=== PATIENT | male | born 1945 | race Caucasian/White ===

== ENCOUNTER 2016-10-10 05:26 | Emergency (ER) | payer OTHER ==
--- NOTE | 2016-10-10 05:46 | PDOC ---
History of Present Illness - General History Source: Patient Exam Limitations: No Limitations - History of Present Illness Initial Comments: 10/10/16 06:13 The patient is a 71 year old male with significant past medical history of hypertension, hyperlipidemia, and gerd who presents to the ED for 1 day of worsening headache. Patient reports in June 2016, he had a aortic valve replacement done and since then he has been keeping daily logs of his blood pressure, which is relatively stable until yesterday afternoon. States he developed headache with associated dizziness yesterday afternoon. Patient reports he then noted his blood pressure to be elevated. Denies diaphoresis, palpitations, SOB, chest pain, jaw pain, shoulder pain, arm pain, nausea, or vomiting. He also has complaints of increased urination. Admits to being compliant with his blood pressure medications and states taking his blood pressure medications early this morning around 4am. The patient denies fever, chills, cough, abdominal pain, and diarrhea. The patient denies dysuria, hematuria, urgency, and frequency. Allergies: NKDA Social History: No alcohol, tobacco, or drug use reported. Past Surgical History: hernia repair, aortic valve replacement (06/2016) PCP: Dr. Bassam Oneil <Adriana Damon - Last Filed: 10/10/16 06:39> - General History Source: Patient <JoelYuriy brumfield - Last Filed: 10/10/16 19:42> - General Chief Complaint: Headache Stated Complaint: HEADACHE,BLOOD PRESSURE PROBLEM Time Seen by Provider: 10/10/16 05:46 Past History <Adriana Damon - Last Filed: 10/10/16 06:39> - Past Medical History GI Disorders: Yes HTN: Yes - Surgical History Abdominal Surgery: Yes (HERNIA) - Psycho/Social/Smoking Cessation Hx Suicidal Ideation: No Smoking History: Never smoked Hx Alcohol Use: No Drug/Substance Use Hx: No Substance Use Type: None <Yuriy Garcia - Last Filed: 10/10/16 19:42> - Past Medical History Allergies/Adverse Reactions: Allergies Allergy/AdvReac Type Severity Reaction Status Date / Time No Known Allergies Allergy Verified 10/10/16 05:45 Home Medications: Ambulatory Orders Aspirin Coated [Ecotrin -] 81 mg PO DAILY 02/14/16 Cholecalciferol (Vitamin D3) [Vitamin D] 2,000 unit PO DAILY 02/14/16 Ezetimibe/Simvastatin [Vytorin 10-20 mg Tablet] 1 tab PO DAILY 02/14/16 Losartan Potassium 25 mg PO DAILY 02/14/16 Mag Carb/Al Hydrox/Alginic AC [Gaviscon Liquid] 0 ml PO DAILY 02/14/16 Review of Systems - Review of Systems Able to Perform ROS?: Yes Comments:: 10/10/16 06:13 CONSTITUTIONAL: Absent: fever, chills, diaphoresis, generalized weakness, malaise, loss of appetite HEENT: Absent: rhinorrhea, nasal congestion, throat pain, throat swelling, difficulty swallowing, ear pain, eye pain, visual Changes CARDIOVASCULAR: +elevated blood pressure Absent: chest pain, syncope, palpitations, lightheadedness, peripheral edema RESPIRATORY: Absent: cough, shortness of breath, dyspnea with exertion, orthopnea, wheezing GASTROINTESTINAL: Absent: abdominal pain, abdominal distension, nausea, vomiting, diarrhea, constipation GENITOURINARY: +increased urination Absent: dysuria, frequency, urgency, hesitancy, hematuria, flank pain, genital pain MUSCULOSKELETAL: Absent: myalgia, arthralgia, joint swelling SKIN: Absent: rash, itching, pallor NEUROLOGIC: +headache, dizziness Absent: focal weakness or paresthesias, dizziness, unsteady gait, seizure, mental status changes, bladder or bowel incontinence <Adriana Damon - Last Filed: 10/10/16 06:39> *Physical Exam - Vital Signs Last Vital Signs Temp Pulse Resp BP Pulse Ox 98.2 F 65 16 167/93 100 10/10/16 05:45 10/10/16 05:45 10/10/16 05:45 10/10/16 05:45 10/10/16 05:45 - Physical Exam Comments: 10/10/16 06:13 GENERAL: Well developed, well nourished. Awake and alert. No acute distress. HEENT: Normocephalic, atraumatic. PERRLA, EOMI. No conjunctival pallor. Sclera are non- icteric. Moist mucous membranes. Oropharynx is clear. NECK: Supple. Full ROM. No JVD. Carotid pulses 2+ and symmetric, without bruits. No thyromegaly. No lymphadenopathy. CARDIOVASCULAR: Regular rate and rhythm. No murmurs, rubs, or gallops. PULMONARY: No evidence of respiratory distress. Lungs clear to auscultation bilaterally. No wheezing, rales or rhonchi. ABDOMINAL: Soft. Non-tender. Non-distended. No rebound or guarding. Normoactive bowel sounds. MUSCULOSKELETAL Normal range of motion at all joints. No bony deformities or tenderness. No CVA tenderness. EXTREMITIES: No cyanosis. No clubbing. No edema. No calf tenderness. SKIN: Warm and dry. Normal capillary refill. No rashes. No jaundice. NEUROLOGICAL: Alert, awake, appropriate. Cranial nerves 2-12 intact. Moving all extremities. No gross focal neurological deficits. <Adriana Damon - Last Filed: 10/10/16 06:39> ED Treatment Course - RADIOLOGY Radiograph Interpretation: 10/10/16 06:39 EXAM: HEAD CT WITHOUT CONTRAST Reviewed by Imaging conche operator: FINDINGS:Brain parenchyma demonstrates no mass, or bleed. There is a focal lucency in the right frontal periventricular white matter suggesting a old or subacute lacunar infarction. There is focal lucency in the inferior right cerebellum suggesting an old or subacute infarction. There is no intracranial bleed. Ventricles are normal in caliber and distribution. Scott-white matter dictation appears normal. Extra-axial CSF spaces and sulci appear normal. Intracranial vascular structures are normal in attenuation. There is no calvarial fracture. Rounded density in the left maxillary sinus suggesting mucous retention cyst IMPRESSION: No intracranial bleed Focal lucency in the right cerebellum suggesting an old, or subacute infarction. Correlation with history and comparison to prior studies, if available is recommended. <Adriana Damon - Last Filed: 10/10/16 06:39> - LABORATORY CBC & Chemistry Diagram: 10/10/16 07:40 10/10/16 07:40 <Yuriy Garcia - Last Filed: 10/10/16 19:42> Medical Decision Making - Medical Decision Making 10/10/16 19:42 Dr. Garcia: The scribe's documentation has been prepared under my direction and personally reviewed by me in its entirery. I confirm that the note above accurately reflects all work, treatment, procedures, and medical decision making performed by me. <Yuriy Garcia - Last Filed: 10/10/16 19:42> *DC/Admit/Observation/Transfer - Attestations Scribe Attestion: 10/10/16 06:13 Documentation prepared by Adriana Damon, acting as medical social consultant for Yuriy Garcia MD <Adriana Damon - Last Filed: 10/10/16 06:39> - Discharge Dispostion Admit: No <Yuriy Garcia - Last Filed: 10/10/16 19:42> Diagnosis at time of Disposition: Headache Qualifiers: Headache type: tension-type Headache chronicity pattern: acute headache Intractability: not intractable Qualified Code(s): G44.209 - Tension-type headache, unspecified, not intractable - Discharge Dispostion Disposition: HOME Condition at time of disposition: Improved - Referrals Referrals: Bassam Oneil MD [Primary Care Provider] - - Patient Instructions Printed Discharge Instructions: DI for Hormonal and Tension Headaches Additional Instructions: Return to the emergency department immediately with ANY new, persistent or worsening symptoms including worsening headache, vision changes, numbness/ tingling/weakness, persistent nausea and vomiting or any other concerns. Make sure you are getting adaqute sleep and hydration. You MUST call and follow up with your doctor tomorrow for further evaluation of your symptoms. Your emergency department visit is not complete without a followup with your doctor for reevaluation. Results were discussed with you. Please make sure your doctor reviews the results of your emergency evaluation. If you had any xrays during your visit, it was read preliminarily by myself, a Radiologist will review it and if there are any additional findings we will call you. Print Language: SOMALI
[2016-10-10 06:03] VITALS: TEMP 98.2; BMI 29.4
[2016-10-10] MEDS ORDERED: ACETAMINOPHEN 325 MG TABLET (FP) ONE (07:05)
[2016-10-10] MEDS: ACETAMINOPHEN 325 MG TABLET (FP) PO ONE (07:07)
--- NOTE | 2016-10-10 07:13 | PDOC ---
*Physical Exam - Vital Signs Last Vital Signs Temp Pulse Resp BP Pulse Ox 98.2 F 65 16 167/93 100 10/10/16 05:45 10/10/16 05:45 10/10/16 05:45 10/10/16 05:45 10/10/16 05:45 ED Treatment Course - LABORATORY CBC & Chemistry Diagram: 10/10/16 07:40 10/10/16 07:40 - Medications Given in the ED: ED Medications Discontinued Medications Generic Name Dose Route Start Last Admin Trade Name Christy PRN Reason Stop Dose Admin Acetaminophen 975 mg 10/10/16 06:50 10/10/16 07:07 Tylenol - PO 10/10/16 06:51 975 mg ONCE ONE Administration Medical Decision Making - Medical Decision Making 10/10/16 07:12 pt signed out to me from Dr Albarran 71y M hx of htn, hl, gerd presents with headache, sp AVR, pt developed a headache and dizziness yesterday aftenroon and saw that his bp was elevated. Pt notes taht he has not been sleeping very well the past 2 nights, an dhas been following his bp. pt coray feels significantly improved. awaiting lab work if it is negative will dc the p tto fu with his pmd 10/10/16 09:38 The pts labs were reviewed and are unremarkable the pts labs are negative will dc the pt to fu with his PMD return precautions were discussed I discussed the physical exam findings, ancillary test results and final diagnoses with the patient. I answered all of the patient's questions. The patient was satisfied with the care received and felt comfortable with the discharge plan and treatment plan. The patient will call their primary care physician within 24 hours to arrange follow-up and will return to the Emergency Department with any new, persistent or worsening symptoms. *DC/Admit/Observation/Transfer Diagnosis at time of Disposition: Headache Qualifiers: Headache type: tension-type Headache chronicity pattern: acute headache Intractability: not intractable Qualified Code(s): G44.209 - Tension-type headache, unspecified, not intractable - Discharge Dispostion Disposition: HOME Condition at time of disposition: Improved Admit: No - Referrals Referrals: Bassam Oneil MD [Primary Care Provider] - - Patient Instructions Printed Discharge Instructions: DI for Hormonal and Tension Headaches Additional Instructions: Return to the emergency department immediately with ANY new, persistent or worsening symptoms including worsening headache, vision changes, numbness/ tingling/weakness, persistent nausea and vomiting or any other concerns. Make sure you are getting adaqute sleep and hydration. You MUST call and follow up with your doctor tomorrow for further evaluation of your symptoms. Your emergency department visit is not complete without a followup with your doctor for reevaluation. Results were discussed with you. Please make sure your doctor reviews the results of your emergency evaluation. If you had any xrays during your visit, it was read preliminarily by myself, a Radiologist will review it and if there are any additional findings we will call you. Print Language: SLOVENIAN - Post Discharge Activity
[2016-10-10 08:04] LABS: BASOPHIL 0.6 % (0-2.0); EOSINOPHIL 0.7 % (0-4.5); MEAN CELL VOLUME 85.4 fl (80-96); MEAN PLT VOLUME 7.8 fl (7.5-11.1); NEUTROPHILS 79.7 % (42.8-82.8); PLATELET COUNT 273 K/MM3 (134-434); RDW 14.9 % (11.9-15.9); WHITE BLOOD COUNT 8.3 K/mm3 (4.0-10.0)
[2016-10-10 08:28] LABS: ALK PHOS 109 U/L (45-117); ANION GAP 7 (8-16); BILIRUBIN,TOTAL 0.6 mg/dL (0.2-1.0); CO2 28 mmol/L (21-32); COCKROFT - GAULT 111.38; CREATININE 0.8 mg/dL (0.7-1.3); GLUCOSE,RANDOM 115 mg/dL (74-106); SGOT/AST 18 U/L (15-37); SGPT/ALT 38 U/L (12-78); TOT PROT 7.7 g/dl (6.4-8.2)
[2016-10-10 09:48] VITALS: BP 136/91; PULSE 62
== END 2016-10-10 09:50 | disposition home or self-care (01) ==
LOC: JER 05:26
DX: G44.209 Tension-type headache, unspecified, not intractable (principal); I10 Essential (primary) hypertension; Z95.2 Presence of prosthetic heart valve; E78.00 Pure hypercholesterolemia, unspecified; K21.9 Gastro-esophageal reflux disease without esophagitis
CPT/HCPCS: 36415; 70450-TC; 80053; 85025; 99281-25

== ENCOUNTER 2017-10-21 16:46 | Emergency (ER) | payer OTHER ==
--- NOTE | 2017-10-21 17:07 | PDOC ---
Rapid Medical Evaluation Time Seen by Provider: 10/21/17 17:03 Medical Evaluation: Allergies Allergy/AdvReac Type Severity Reaction Status Date / Time No Known Allergies Allergy Verified 10/21/17 17:03 10/21/17 17:04 I have performed a brief in-person evaluation of this patient. The patient presents with a chief complaint of blood per rectum. Reports 2 episodes of mucus per rectum and one episode of bright red blood when he cleans Pertinent physical exam findings are NAD even and unlabored breathing, lungs clear bilaterally heart s1s2 abdomen non tender +bowel sounds I have ordered the following labs this patient will proceed to the ED for further evaluation.
[2017-10-21 17:14] VITALS: TEMP 98.2; BMI 32.5
[2017-10-21 18:16] LABS: INR 0.95 (0.82-1.09); PROTHROMBIN TIME (PATIENT) 10.7 SEC (9.7-13.0)
[2017-10-21 18:19] LABS: ACTIVATED PTT 29.2 SECONDS (26.9-34.4)
[2017-10-21 18:19] LABS: BASO % 0.4 % (0-2.0); HEMATOCRIT 38.6 % (35.4-49); HEMOGLOBIN 13.4 GM/dL (11.7-16.9); LYMPH % 17.4 % (8-40); MCH 30.5 pg (25.7-33.7); MCHC 34.8 g/dl (32.0-35.9); MEAN CELL VOLUME 87.8 fl (80-96); MEAN PLT VOLUME 8.2 fl (7.5-11.1); MONO % 10.1 % (3.8-10.2); NEUT % 71.1 % (42.8-82.8); PLATELET COUNT 255 K/MM3 (134-434); RDW 15.2 % (11.9-15.9); WHITE BLOOD COUNT 6.5 K/mm3 (4.0-10.0)
--- NOTE | 2017-10-21 18:29 | CON.GI ---
Consult Consult Specialty:: Gastroenterology Referred by:: ER Reason for Consultation:: Rectal bleeding - History of Present Illness Chief Complaint: Rectal bleeding History of Present Illness: 72M had a solid formed BM this AM. He subsequently had tenesmus leading to 5 attempts to defecate which yielded only mucus. After the 4th BM attempt he expressed freash blood on the poilet papaer after wiping. At no point did he see blood in the toilet bowl and had no blood on wiping after the 5th defecation. He did take antibiotics about 3 weeks ago for dental work, but denies any colicky abdominal pain or fever. He recently had his Amiodarone stopped by Dr Oneil after he developed hyperthyroidism. He is awaiting and endocrine evaluation with Dr Michelle. He is s/ p bioprosthetic ( porcine) AVR at [facility] in 07/29/[address] Nice. He takes a baby aspirin daily. Jair is well known to me. His last underwent colonoscopy on 02/07/15 when a 1.5cm adenoma was removed from his descending colon. Moderate diverticulosis was seen universally. His last EGD in 03/15 revealed GERD and atrophic gastritis. - History Source History Provided By: Patient Limitations to Obtaining History: No Limitations - Past Medical History Cardio/Vascular: Yes: Aneurysm (Thoracic aortic aneurysm), Aortic Insufficiency (requiring porcine AVR 07/29/16 @ [facility]), HTN, Hyperlipdemia, Mitral Insufficiency Gastrointestinal: Yes: Diverticulosis, Gastritis (H. 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 attendant Place of : Other ([place]) Came to [place] (year): age 17 History of Recent Travel: No Home Medications - Allergies Allergies/Adverse Reactions: Allergies Allergy/AdvReac Type Severity Reaction Status Date / Time No Known Allergies Allergy Verified 10/21/17 17:03 - Home Medications Home Medications: Ambulatory Orders Aspirin Coated [Ecotrin -] 81 mg PO DAILY 02/14/16 Cholecalciferol (Vitamin D3) [Vitamin D] 2,000 unit PO DAILY 02/14/16 Ezetimibe/Simvastatin [Vytorin 10-20 mg Tablet] 1 tab PO DAILY 02/14/16 Losartan Potassium 25 mg PO DAILY 02/14/16 Mag Carb/Aluminum Hydrox/Algin [Gaviscon Liquid] 0 ml PO DAILY 02/14/16 Family Disease History - Family Disease History Family Disease History: Respiratory: Father (COPD), Other: Mother (HTN), Brother (Healthy) Review of Systems - Review of Systems Constitutional: reports: No Symptoms Eyes: reports: No Symptoms HENT: reports: No Symptoms Neck: reports: No Symptoms Cardiovascular: reports: Other (Lightheadedness last 2 weeks) Respiratory: reports: No Symptoms Gastrointestinal: reports: Rectal Bleeding, Other (hyperdefecation) Genitourinary: reports: No Symptoms Musculoskeletal: reports: Joint Pain Neurological: reports: No Symptoms Endocrine: reports: No Symptoms Hematology/Lymphatic: reports: No Symptoms Psychiatric: reports: No Symptoms Physical Exam-GI Vital Signs: Vital Signs Temperature 98.2 F 10/21/17 17:05 Pulse Rate 74 10/21/17 17:05 Respiratory Rate 17 10/21/17 17:05 Blood Pressure 136/83 10/21/17 17:05 O2 Sat by Pulse Oximetry (%) 96 10/21/17 17:05 CBC,CMP WBC 6.5 K/mm3 (4.0-10.0) 10/21/17 17:52 RBC 4.40 M/mm3 (4.00-5.60) 10/21/17 17:52 Hgb 13.4 GM/dL (11.7-16.9) 10/21/17 17:52 Hct 38.6 % (35.4-49) 10/21/17 17:52 MCV 87.8 fl (80-96) 10/21/17 17:52 MCH 30.5 pg (25.7-33.7) 10/21/17 17:52 MCHC 34.8 g/dl (32.0-35.9) 10/21/17 17:52 RDW 15.2 % (11.9-15.9) 10/21/17 17:52 Plt Count 255 K/MM3 (134-434) 10/21/17 17:52 MPV 8.2 fl (7.5-11.1) 10/21/17 17:52 Neutrophils % 71.1 % (42.8-82.8) 10/21/17 17:52 Lymphocytes % 17.4 % (8-40) D 10/21/17 17:52 Monocytes % 10.1 % (3.8-10.2) 10/21/17 17:52 Eosinophils % 1.0 % (0-4.5) 10/21/17 17:52 Basophils % 0.4 % (0-2.0) 10/21/17 17:52 Constitutional: Yes: Anxious Eyes: Yes: Conjunctiva Clear HENT: Yes: Normocephalic Neck: Yes: Trachea Midline Cardiovascular: Yes: Regular Rate and Rhythm, Tachycardia, S1 (click heard) Respiratory: Yes: CTA Bilaterally Gastrointestinal Inspection: Yes: WNL ...Auscultate: Yes: Normoactive Bowel Sounds ...Palpate: Yes: Soft, Other (nontender) ...Percussion: Yes: Tympanitic ...Rectal Exam: Yes: Guaiac Positive, Hemorrhoids/External (palpable, friabe external hemorrhoids), Sphincter Tone Normal Genitourinary: Yes: Other (2+ prostate) Musculoskeletal: Yes: WNL Extremities: Yes: WNL Edema: No Peripheral Pulses WNL: Yes Neurological: Yes: Alert, Oriented Problem List - Problems (1) Diarrhea Assessment/Plan: I believe that Jair may have hyperdefecation related to his Amiodarone but given his antibiotic exposure and tenesmus have asked that stool be sent for C diff toxin and C/S. I also advised his nurse Tsering to get an EKG to exclude ENIO and SVT before considering discharge. Code(s): R19.7 - DIARRHEA, UNSPECIFIED (2) Hematochezia Assessment/Plan: Give his pattern of bleeding, stable Hb and anal findings, Jair's bleeding appears to be hemorrhoidal and aggravated by frequent defecation and wiping. I have no GI objections to discharge and advised Jair to use TUCKs and to take Sitz baths with epsom salt. He can followup in our office. 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 I advised him to return to our office to arrange colonoscopy once his thyroid condition is remedied. Code(s): Z86.010 - PERSONAL HISTORY OF COLONIC POLYPS (8) Diverticulosis Code(s): K57.90 - DVRTCLOS OF INTEST, PART UNSP, W/O PERF OR ABSCESS W/O BLEED (9) GERD (gastroesophageal reflux disease) Code(s): K21.9 - GASTRO-ESOPHAGEAL REFLUX DISEASE WITHOUT ESOPHAGITIS
[2017-10-21 18:49] LABS: ALBUMIN 3.7 g/dl (3.4-5.0); ANION GAP 4 (8-16); BILIRUBIN,TOTAL 0.5 mg/dL (0.2-1.0); BLOOD UREA NITROGEN 20 mg/dL (7-18); CALCIUM 8.6 mg/dL (8.5-10.1); CHLORIDE 111 mmol/L (98-107); CO2 26 mmol/L (21-32); CREATININE 0.7 mg/dL (0.7-1.3); GLUCOSE,RANDOM 90 mg/dL (74-106); SGPT/ALT 33 U/L (12-78); SODIUM 141 mmol/L (136-145); TOT PROT 6.9 g/dl (6.4-8.2)
[2017-10-21 18:50] LABS: ALK PHOS 92 U/L (45-117)
[2017-10-21 18:56] LABS: POTASSIUM 4.2 mmol/L (3.5-5.1); SGOT/AST 22 U/L (15-37)
--- NOTE | 2017-10-21 19:02 | PDOC ---
History of Present Illness - General Chief Complaint: Rectal Bleed Stated Complaint: PCP SENT Time Seen by Provider: 10/21/17 17:03 - History of Present Illness Initial Comments: 10/21/17 19:14 "The patient is a 72 year old male, with a significant PMH of hypertension, hyperlipidemia, GERD, hypothyroidism, who presents to the emergency department with bright red blood per rectum beginning at 3pm in the afternoon. The patient states he had a normal bowel movement this morning (denies any diarrhea, melena or hematochezia). The patient states that throughout the day he had approx 3-4 episodes of bowel urgency but when he went to the restroom did not pass stool. The patient states that he tried once more around 3pm and did not pass stool but noticed when he wiped there was bright red blood on the tissue paper. He reports seeing only a few streaks. Denies any significant volume of blood loss. Pt denies any further episodes of BRBPR. The patient denies chest pain, shortness of breath, headache and dizziness. Denies fever, chills, nausea, vomit, diarrhea and constipation. Denies dysuria, frequency, urgency and hematuria. Allergies: NKA Past surgical history: heart surgery 06/28/17 valve replacement " Past History - Past Medical History Allergies/Adverse Reactions: Allergies Allergy/AdvReac Type Severity Reaction Status Date / Time No Known Allergies Allergy Verified 10/21/17 17:03 Home Medications: Ambulatory Orders Aspirin Coated [Ecotrin -] 81 mg PO DAILY 02/14/16 Cholecalciferol (Vitamin D3) [Vitamin D] 2,000 unit PO DAILY 02/14/16 Ezetimibe/Simvastatin [Vytorin 10-20 mg Tablet] 1 tab PO DAILY 02/14/16 Losartan Potassium 25 mg PO DAILY 02/14/16 Mag Carb/Aluminum Hydrox/Algin [Gaviscon Liquid] 0 ml PO DAILY 02/14/16 COPD: No DVT: No GI Disorders: Yes HTN: Yes Hypercholesterolemia: Yes - Surgical History Abdominal Surgery: Yes (bilateral Ingunial HERNIA) Cardiac Surgery: Yes (valve replacement) - Immunization History Immunization Up to Date: Yes - Suicide/Smoking/Psychosocial Hx Smoking History: Never smoked Have you smoked in the past 12 months: No Information on smoking cessation initiated: No Hx Alcohol Use: Yes (rarely) Drug/Substance Use Hx: No Substance Use Type: None Review of Systems - Review of Systems Comments:: 10/21/17 19:15 "GENERAL/CONSTITUTIONAL: No fever or chills. No weakness. HEAD, EYES, EARS, NOSE AND THROAT: No change in vision. No ear pain or discharge. No sore throat. CARDIOVASCULAR: No chest pain or shortness of breath. RESPIRATORY: No cough, wheezing, or hemoptysis. GASTROINTESTINAL: +Bright red blood per rectum. No nausea, vomiting, diarrhea or constipation. GENITOURINARY: No dysuria, frequency, or change in urination. MUSCULOSKELETAL: No joint or muscle swelling or pain. No neck or back pain. SKIN: No rash NEUROLOGIC: No headache, vertigo, loss of consciousness, or change in strength/ sensation. ENDOCRINE: No increased thirst. No abnormal weight change. HEMATOLOGIC/LYMPHATIC: No anemia, easy bleeding, or history of blood clots. ALLERGIC/IMMUNOLOGIC: No hives or skin allergy. " *Physical Exam - Vital Signs Last Vital Signs Temp Pulse Resp BP Pulse Ox 98.2 F 74 17 136/83 96 10/21/17 17:05 10/21/17 17:05 10/21/17 17:05 10/21/17 17:05 10/21/17 17:05 - Physical Exam Comments: 10/21/17 19:02 "GENERAL: Awake, alert, and fully oriented, in no acute distress. HEAD: No signs of trauma EYES: PERRLA, EOMI, sclera anicteric, conjunctiva clear ENT: Auricles normal inspection, hearing grossly normal, nares patent, oropharynx clear without exudates. Moist mucosa NECK: Nontender, no stepoffs, Normal ROM, supple, no lymphadenopathy, JVD, or masses LUNGS: Breath sounds equal, clear to auscultation bilaterally. No wheezes, and no crackles HEART: Regular rate and rhythm, normal S1 and S2, no murmurs, rubs or gallops ABDOMEN: Soft, nontender, normoactive bowel sounds. No guarding, no rebound. No masses EXTREMITIES: Normal range of motion, no edema. No clubbing or cyanosis. No cords, erythema, or tenderness NEUROLOGICAL: Cranial nerves II through XII intact. 5/5 strength and sensation in all extremities, Normal speech, normal gait, normal cerebellar function SKIN: Warm, Dry, normal turgor, no rashes or lesions noted. RECTAL: + external hemorrhoids, no active bleeding, no thrombosed hemorrhoids, brown stool ED Treatment Course - LABORATORY CBC & Chemistry Diagram: 10/21/17 17:52 10/21/17 17:52 - ADDITIONAL ORDERS Additional order review: Laboratory Results 10/21/17 10/21/17 10/21/17 17:52 17:52 17:45 PT with INR 10.70 INR 0.95 PTT (Actin FS) 29.2 Sodium 141 Potassium 4.2 Chloride 111 H Carbon Dioxide 26 Anion Gap 4 L BUN 20 H D Creatinine 0.7 Creat Clearance w eGFR > 60 Random Glucose 90 D Calcium 8.6 Total Bilirubin 0.5 AST 22 D ALT 33 Alkaline Phosphatase 92 Total Protein 6.9 Albumin 3.7 Blood Type AB POSITIVE Antibody Screen Negative 10/21/17 17:52 RBC 4.40 MCV 87.8 MCHC 34.8 RDW 15.2 MPV 8.2 Neutrophils % 71.1 Lymphocytes % 17.4 D Monocytes % 10.1 Eosinophils % 1.0 Basophils % 0.4 Medical Decision Making - Medical Decision Making 10/21/17 19:01 72 M with blood when wiping x 1 day. Pt with hemorrhoids on exam, likely cause of pt's bleeding. No evidence of other GI bleed. - Labs - GI consult Dr. Coleman 10/21/17 19:15 Labs wnl Pt seen by Dr. Coleman, who agrees that pt's bleeding likely hemorrhoidal. Pt with no evidence of anemia on labs. Hemodynamically stable. Pt is well appearing, with normal vitals. Clinically stable for DC at this time. I discussed the physical exam findings, ancillary test results and final diagnoses with the patient. I answered all of the patient's questions. The patient was satisfied with the care received and felt comfortable with the discharge plan and treatment plan. The patient agrees to follow up with the primary care physician within 24-72 hours. *DC/Admit/Observation/Transfer Diagnosis at time of Disposition: Hemorrhoids - Discharge Dispostion Disposition: HOME - Referrals Referrals: Bassam Oneil MD [Primary Care Provider] - - Patient Instructions Printed Discharge Instructions: DI for Hemorrhoids Additional Instructions: You have hemorrhoids. Use sitz baths and over the counter hemorrhoid cream to treat it. If you experience worsening bleeding, pain, or any other concerning symptoms, return to the ER immediately. Otherwise, follow up with your primary care doctor within 1 week. - Post Discharge Activity - Attestations Physician Attestion: 10/21/17 19:17 I, Dr. Dallin Finnegan MD, attest that this document has been prepared under my direction and personally reviewed by me in its entirety. I further attest, that it accurately reflects all work, treatment, procedures and medical decision -making performed by me.
[2017-10-21 19:28] VITALS: BP 126/80; PULSE 65
--- NOTE | 2017-10-22 12:03 | EKG ---
Test Reason : Blood Pressure : / mmHG Vent. Rate : 069 BPM Atrial Rate : 069 BPM P-R Int : 192 ms QRS Dur : 114 ms QT Int : 384 ms P-R-T Axes : 072 052 072 degrees QTc Int : 411 ms NORMAL SINUS RHYTHM WITH SINUS ARRHYTHMIA NORMAL ECG WHEN COMPARED WITH ECG OF 14-FEB-2016 15:47, NO SIGNIFICANT CHANGE WAS FOUND Confirmed by IKER MONTOYA MD ([id number]) on 10/22/2017 12:03:07 PM Referred By: Confirmed By:IKER MONTOYA MD
== END 2017-10-21 19:29 | disposition home or self-care (01) ==
LOC: JER 16:46
DX: K64.8 Other hemorrhoids (principal); K92.1 Melena; I10 Essential (primary) hypertension; E78.5 Hyperlipidemia, unspecified; K21.9 Gastro-esophageal reflux disease without esophagitis; E05.30 Thyrotoxicosis from ectopic thyroid tissue without thyrotoxic crisis or storm; Z95.2 Presence of prosthetic heart valve; Z79.82 Long term (current) use of aspirin
CPT/HCPCS: 36415; 80053; 85025; 85610; 85730; 86850; 86900; 86901; 93005; 93010; 99283-25

== ENCOUNTER 2018-04-15 06:34 | Day surgery (SDC) | payer OTHER ==
[2018-04-14 13:47] VITALS: BMI 32.0
[2018-04-15 07:21] VITALS: TEMP 97.6
[2018-04-15] MEDS ORDERED: ceFAZolin SODIUM 1 GM VIAL ONE (07:50)
[2018-04-15 09:14] VITALS: BP 120/64; PULSE 61
--- NOTE | 2018-04-16 15:44 | PATH ---
Surgical Pathology Report Patient Name: SCARLETT AVALOS [facility]. Rec. #: [id number] /Age/Gender: 1945 (Age: 72) / M Account: [id number] Location: [facility]-ENDOSCOPY Taken: 04/15/2018 Received: 04/15/2018 Reported: 04/16/2018 Physicians: Cecil Coleman M.D. Specimen(s) Received BX RIGHT COLON POLYP Clinical History Adenoma surveillance Postoperative diagnosis: Right colon polyp, diverticulosis Final Diagnosis RIGHT COLON POLYP, POLYPECTOMY: HYPERPLASTIC POLYP. Electronically Signed Thony Rae M.D. Gross Description Received in formalin, labeled "polyp right colon" are 2 oliveira, irregular portions of soft tissue measuring 0.6 and 1.1 cm. in greatest dimension. The specimens are submitted in toto in one cassette. DL/04/15/201804/15/2018
== END 2018-04-15 09:31 | disposition home or self-care (01) ==
LOC: JASU-ENDO 06:34
PROVIDERS: ATTEND Internal Medicine Gastroenterology
PROC: 0DBK8ZX Excision of Ascending Colon, Via Natural or Artificial Opening Endoscopic, Diagnostic (ICD-10-PCS; principal; 2018-04-15 08:00)
DX: Z12.11 Encounter for screening for malignant neoplasm of colon (principal); Z86.010 Personal history of colon polyps; K57.30 Diverticulosis of large intestine without perforation or abscess without bleeding; K64.8 Other hemorrhoids; D12.2 Benign neoplasm of ascending colon
CPT/HCPCS: 88305-TC

== ENCOUNTER 2023-10-01 03:31 | Observation (INO) | payer OTHER ==
[2023-10-01 03:41] VITALS: BMI 31.0
[2023-10-01 04:44] LABS: BASO % 0.3 % (0-2.0); EOS % 0.9 % (0-4.5); HEMATOCRIT 40.5 % (35.4-49); HEMOGLOBIN 13.8 GM/dL (11.7-16.9); LYMPH % 12.2 % (8-40); MCHC 34.1 g/dl (32.0-35.9); MEAN CELL VOLUME 88.1 fl (80-96); MEAN PLT VOLUME 8.3 fl (7.5-11.1); MONO % 8.7 % (3.8-10.2); NEUT % 77.9 % (42.8-82.8); PLATELET COUNT 258 10^3/uL (134-434); RBC 4.59 M/mm3 (4.00-5.60); RDW 15.9 % (11.9-15.9); WHITE BLOOD COUNT 7.7 K/mm3 (4.0-10.0)
[2023-10-01 05:02] LABS: POTASSIUM 3.7 mmol/L (3.5-5.1)
[2023-10-01 05:04] LABS: ALBUMIN 3.9 g/dl (3.4-5.0); CALCIUM 9.3 mg/dL (8.5-10.1); MAGNESIUM 1.9 mg/dL (1.8-2.4)
[2023-10-01 05:05] LABS: BLOOD UREA NITROGEN 11.4 mg/dL (7-18)
[2023-10-01 05:07] LABS: CREATININE 0.8 mg/dL (0.55-1.3)
[2023-10-01 05:08] LABS: INR 1.1 (0.83-1.09); PROTHROMBIN TIME (PATIENT) 12.8 SEC (9.7-13.0)
[2023-10-01 05:09] LABS: BILIRUBIN,TOTAL 1.3 mg/dL (0.2-1); TOT PROT 7.8 g/dl (6.4-8.2)
[2023-10-01 10:24] VITALS: RESP 13
[2023-10-01 10:31] VITALS: BP 154/95; PULSE 75; TEMP 98
== END 2023-10-01 10:48 | disposition home or self-care (01) ==
LOC: JER 03:31 → JERBED 08:46
PROVIDERS: ADMIT Internal Medicine; ATTEND Internal Medicine
PROC: 0DBN8ZZ Excision of Sigmoid Colon, Via Natural or Artificial Opening Endoscopic (ICD-10-PCS; 2023-10-01)
PROC: 0DBL8ZZ Excision of Transverse Colon, Via Natural or Artificial Opening Endoscopic (ICD-10-PCS; 2023-10-01)
PROC: 0W3P8ZZ Control Bleeding in Gastrointestinal Tract, Via Natural or Artificial Opening Endoscopic (ICD-10-PCS; 2023-10-01)
PROC: 0DDK8ZX Extraction of Ascending Colon, Via Natural or Artificial Opening Endoscopic, Diagnostic (ICD-10-PCS; principal; 2023-10-01 08:00)
DX: K57.90 Diverticulosis of intestine, part unspecified, without perforation or abscess without bleeding (principal); E78.5 Hyperlipidemia, unspecified; I10 Essential (primary) hypertension; K21.9 Gastro-esophageal reflux disease without esophagitis; E03.9 Hypothyroidism, unspecified; K64.4 Residual hemorrhoidal skin tags; Z79.01 Long term (current) use of anticoagulants; I47.19 Other supraventricular tachycardia; I34.0 Nonrheumatic mitral (valve) insufficiency; I71.20 Thoracic aortic aneurysm, without rupture, unspecified; K29.70 Gastritis, unspecified, without bleeding
CPT/HCPCS: 36415; 74174-TC; 80053; 83735; 85025; 85610; 85730; 86850; 86900; 86901; 88305-TC; 93005; 93010; 99285-25; G0378